=== PATIENT | female | born 1945 | race Caucasian/White ===

== ENCOUNTER 2022-05-17 15:07 | Outpatient (CLI) | payer MEDICARE ==
[2022-05-17 16:46] LABS: Hemoglobin 10.4 g/dL (12.0-15.5); Mean Corpuscular HGB CONC 31.2 g/dL (32.0-36.0); Mean Corpuscular Hemoglobin 30.5 pg (27.0-33.0); Mean Corpuscular Volume 97.7 fl (81.6-98.3); Mean Platelet Volume 10.7 fl (7.4-10.4); Platelet Count 251 10x3/uL (150-450); RBC Distribution Width 16.7 % (11.5-14.5); Red Blood Cell (RBC) Count 3.41 10x6/uL (3.90-5.03); White Blood Cell (WBC) Count 7.1 10x3/uL (3.5-10.5)
[2022-05-17 17:00] LABS: Anion Gap 12 mmol/L (10-20); BUN (Urea Nitrogen) 27 mg/dL (9.8-20.1); Calc. Creatinine Clearance 0 mL/min (70-130); Calcium 9.2 mg/dL (7.8-10.44); Carbon Dioxide 27 mmol/L (23-31); Chloride 108 mmol/L (98-107); Estimated GFR 78; Glucose 84 mg/dL (83-110); Potassium 4.5 mmol/L (3.5-5.1); Sodium 142 mmol/L (136-145)
[2022-05-17 17:05] LABS: INR-International Normal Ratio 0.9; PTT 25.4 sec (22.0-33.0)
== END 2022-05-17 15:08 | disposition home or self-care (01) ==
LOC: CSHLAB 15:07
PROVIDERS: ATTEND Orthopaedic Surgery
DX: Z01.818 Encounter for other preprocedural examination (principal); Z20.822 Contact with and (suspected) exposure to COVID-19; M54.50 Low back pain, unspecified; M54.16 Radiculopathy, lumbar region
CPT/HCPCS: 80048; 85027; 85610; 85730; 87811; 93005; 93010

== ENCOUNTER 2022-05-21 05:47 | Inpatient (IN) | payer MEDICARE ==
[2022-05-21] MEDS ORDERED: EPINEPHrine 1 MG/ML AMP ONE (06:40)
[2022-05-21] MEDS ORDERED: Bupivacaine PF 0.5% 30 ML VIAL ONE (06:41)
[2022-05-21] MEDS ORDERED: Bupivacaine 0.25% HCL 30 ML VIAL ONE (06:50)
[2022-05-21] MEDS ORDERED: Famotidine/PF 20 mg/2ml Vial ONE (06:58)
[2022-05-21] MEDS ORDERED: CEFAZOLIN 2 GM VIAL ONE (07:54)
[2022-05-21] MEDS ORDERED: HYDROmorphone 0.5 MG/0.5 ML SYRINGE ONE (08:06)
[2022-05-21] MEDS ORDERED: Propofol 1,000 MG/100 ML VIAL IV ONE (08:07)
[2022-05-21] MEDS ORDERED: Ondansetron PF 4 MG/2 ML Vial ONE (08:10)
[2022-05-21] MEDS ORDERED: Dexamethasone 4 mg/ml Vial ONE (08:10)
[2022-05-21] MEDS ORDERED: Lidocaine 1% PF 5 ML VIAL ONE (08:10)
[2022-05-21] MEDS ORDERED: Rocuronium Bromide 10 MG/ML (10ML VIAL) ONE (08:10)
[2022-05-21] MEDS ORDERED: Succinylcholine 200 MG/10 ml SYRINGE FS ONE (08:10)
[2022-05-21] MEDS ORDERED: Esmolol 100 MG/10 ML VIAL ONE (08:13)
[2022-05-21] MEDS ORDERED: Ketamine 50 MG/ML (10ML VIAL) ONE (08:19)
[2022-05-21] MEDS ORDERED: PHENYLEPHRINE-NS 100 MCG/ML 10 ML SYRINGE ONE (08:56)
[2022-05-21] MEDS ORDERED: Ondansetron PF 4 MG/2 ML Vial SLOW IVP PRN (13:20)
[2022-05-21] MEDS ORDERED: Morphine 4 MG/ML VIAL SLOW IVP PRN (13:20)
[2022-05-21] MEDS ORDERED: [UNRECOGNIZED DRUG - OTHER] PO PRN (13:22)
[2022-05-21] MEDS ORDERED: POTASSIUM CHLORIDE 20 MEQ PO PRN (13:22)
[2022-05-21] MEDS ORDERED: FEXOFENADINE PO PRN (13:22)
[2022-05-21] MEDS ORDERED: PSEUDOEPHEDRINE PO PRN (13:22)
[2022-05-21] MEDS ORDERED: Furosemide 20 MG TAB PO PRN (13:22)
[2022-05-21] MEDS ORDERED: HYDROcodone/Acetaminophen 10/325 mg Tablet PO PRN (13:22)
[2022-05-21] MEDS ORDERED: Topiramate 25 MG TAB PO PRN (13:22)
[2022-05-21] MEDS ORDERED: ALIROCUMAB 75 MG/ML SQ SCH (13:30)
[2022-05-21] MEDS ORDERED: ABX FS PRN (13:30)
[2022-05-21] MEDS ORDERED: Fentanyl 100 MCG/2 ML VIAL ONE (13:58)
[2022-05-21] MEDS: tiZANidine HCl 4 MG TAB PO PRN ×2 (16:13→22:39)
[2022-05-21] MEDS ORDERED: Loratadine 10 MG TAB PO PRN (17:40)
[2022-05-21] MEDS ORDERED: hydrALAZINE 20 MG/ML VIAL SLOW IVP PRN (17:46)
[2022-05-21] MEDS: CEFAZOLIN 2 GM in Sodium Chloride 0.9% 100 ML IVPB SCH (18:00)
[2022-05-21] MEDS: HYDROcodone/Acetaminophen 10/325 mg Tablet PO PRN (18:01)
[2022-05-21] MEDS ORDERED: Aspirin 81 mg Enteric Coated Tablet PO SCH (21:00)
[2022-05-21] MEDS: Pregabalin 75 MG CAP PO SCH (21:00)
[2022-05-21] MEDS: traMADol HCl 50 MG TAB PO PRN (21:01)
[2022-05-21] MEDS: Aspirin 81 mg Enteric Coated Tablet PO SCH (21:01)
[2022-05-21] MEDS: Amiodarone 200 MG TAB PO SCH (21:02)
[2022-05-21] MEDS: Metoprolol Tartrate 25 MG TAB PO SCH (21:08)
[2022-05-21] MEDS: Senokot S 8.6-50 MG TAB PO SCH (21:23)
[2022-05-22] MEDS: CEFAZOLIN 2 GM in Sodium Chloride 0.9% 100 ML IVPB SCH ×3 (00:31→15:21)
[2022-05-22] MEDS: HYDROcodone/Acetaminophen 10/325 mg Tablet PO PRN ×4 (01:58→21:03)
[2022-05-22] MEDS: traMADol HCl 50 MG TAB PO PRN ×3 (04:36→18:37)
[2022-05-22] MEDS: Senokot S 8.6-50 MG TAB PO SCH ×2 (07:56→21:03)
[2022-05-22] MEDS: Pregabalin 75 MG CAP PO SCH ×2 (07:57→22:04)
[2022-05-22] MEDS: Aspirin 81 mg Enteric Coated Tablet PO SCH ×2 (07:58→21:04)
[2022-05-22] MEDS: tiZANidine HCl 4 MG TAB PO PRN ×2 (11:05→17:38)
[2022-05-22] MEDS: Amiodarone 200 MG TAB PO SCH (21:04)
[2022-05-22] MEDS: Metoprolol Tartrate 25 MG TAB PO SCH (21:04)
[2022-05-23] MEDS: tiZANidine HCl 4 MG TAB PO PRN (02:24)
[2022-05-23] MEDS: traMADol HCl 50 MG TAB PO PRN (05:16)
[2022-05-23] MEDS: Aspirin 81 mg Enteric Coated Tablet PO SCH (08:34)
[2022-05-23] MEDS: Pregabalin 75 MG CAP PO SCH (08:34)
[2022-05-23] MEDS: Senokot S 8.6-50 MG TAB PO SCH (08:34)
[2022-05-23] MEDS: HYDROcodone/Acetaminophen 10/325 mg Tablet PO PRN (08:35)
[2022-05-23 12:06] VITALS: BMI 19.3
[2022-05-23 12:22] VITALS: BP 157/70; TEMP 97.5
== END 2022-05-23 11:55 | disposition home health service (06) | DRG 455 ==
LOC: CSHSDC 05:47 → CSHTELE 15:28
PROVIDERS: ADMIT Orthopaedic Surgery; ATTEND Orthopaedic Surgery
PROC: 0SG10AJ Fusion of 2 or more Lumbar Vertebral Joints with Interbody Fusion Device, Posterior Approach, Anterior Column, Open Approach (ICD-10-PCS; principal; 2022-05-21)
PROC: 0SB20ZZ Excision of Lumbar Vertebral Disc, Open Approach (ICD-10-PCS; 2022-05-21)
PROC: 4A11X4G Monitoring of Peripheral Nervous Electrical Activity, Intraoperative, External Approach (ICD-10-PCS; 2022-05-21)
PROC: 0SG1071 Fusion of 2 or more Lumbar Vertebral Joints with Autologous Tissue Substitute, Posterior Approach, Posterior Column, Open Approach (ICD-10-PCS; 2022-05-21)
DX: M40.209 Unspecified kyphosis, site unspecified (principal); M48.061 Spinal stenosis, lumbar region without neurogenic claudication; I25.10 Atherosclerotic heart disease of native coronary artery without angina pectoris; M54.16 Radiculopathy, lumbar region; I48.0 Paroxysmal atrial fibrillation; F41.9 Anxiety disorder, unspecified; G43.909 Migraine, unspecified, not intractable, without status migrainosus; Z96.1 Presence of intraocular lens; G89.4 Chronic pain syndrome; N18.2 Chronic kidney disease, stage 2 (mild); I12.9 Hypertensive chronic kidney disease with stage 1 through stage 4 chronic kidney disease, or unspecified chronic kidney disease; J30.2 Other seasonal allergic rhinitis; Z86.718 Personal history of other venous thrombosis and embolism; Z90.710 Acquired absence of both cervix and uterus; Z88.8 Allergy status to other drugs, medicaments and biological substances; Z88.5 Allergy status to narcotic agent; Z95.5 Presence of coronary angioplasty implant and graft; Z79.899 Other long term (current) drug therapy; Z88.6 Allergy status to analgesic agent; Z87.891 Personal history of nicotine dependence; Z98.890 Other specified postprocedural states; Z98.49 Cataract extraction status, unspecified eye; D64.9 Anemia, unspecified; M81.0 Age-related osteoporosis without current pathological fracture; Z80.42 Family history of malignant neoplasm of prostate; Z82.49 Family history of ischemic heart disease and other diseases of the circulatory system
CPT/HCPCS: 36415; 72110; 86850; 86900; 86901; 94760; C1713; C1762; C1889; J0171; J0360; J0690; J1100; J1170; J2270; J2405; J2704; J3010; J3490; S0020; S0028